=== PATIENT | female | born 1990 | race Caucasian/White ===

== ENCOUNTER 2017-02-25 09:47 | Outpatient (CLI) | payer MEDICAID ==
[~2017-02-25] VITALS: Ht 160 cm; Wt 104.5 kg
[2017-02-25 10:01] VITALS: BP 118/75
[2017-02-25] MEDS ORDERED: PREN-3 PO (10:06)
[2017-02-25] MEDS ORDERED: BUTA1CAP28 PO (10:36)
== END 2017-02-25 11:00 | disposition home or self-care (01) ==
LOC: LDOP 09:47
PROVIDERS: ATTEND Obstetrics & Gynecology
DX: O26.893 Other specified pregnancy related conditions, third trimester (principal); G43.909 Migraine, unspecified, not intractable, without status migrainosus; Z3A.33 33 weeks gestation of pregnancy
CPT/HCPCS: 59025; 99211; G0463